=== PATIENT | male | born 1985 | race American Indian/Alaskan Native ===

== ENCOUNTER 2019-06-19 07:52 | Emergency (ER) | payer OTHER ==
--- NOTE | 2019-06-19 09:27 | Emergency Department Report ---
ED General Adult HPI - General Chief complaint: Extremity Injury, Lower Stated complaint: (R) FOOT/BACK PAIN Time Seen by Provider: 06/19/19 08:59 Source: patient Mode of arrival: Ambulatory Limitations: No Limitations - History of Present Illness Initial comments: This is a 33-year-old -[place] male presents to the emergency room with right foot pain and back pain for 3 days. 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 Patient reports pain is worse with weightbearing. He was unable to apply weight Tuesday morning when he woke up. Patient states he soaked his foot in Epsom salts. Minimal improvement of symptoms. He reports back pain for one year intermittently after surgery. He denies recent injury. Onset/Timin -: days(s) Location: back, lower extremity (right foot) Radiation: non-radiation Severity scale (0 -10): 5 Quality: aching Consistency: intermittent Improves with: immobilization Worsens with: movement, other (weight bearing) Associated Symptoms: denies other symptoms Treatments Prior to Arrival: heat therapy - Related Data Previous Rx's Medication Instructions Recorded Last Taken Type Ibuprofen [Motrin 800 MG tab] 800 mg PO Q8HR PRN #20 tablet 06/19/19 Unknown Rx Allergies Allergy/AdvReac Type Severity Reaction Status Date / Time No Known Allergies Allergy Unverified 06/19/19 07:59 ED Review of Systems ROS: Stated complaint: (R) FOOT/BACK PAIN Other details as noted in HPI Constitutional: denies: chills, fever Respiratory: denies: cough, shortness of breath, wheezing Cardiovascular: denies: chest pain, palpitations Gastrointestinal: denies: abdominal pain, nausea, diarrhea Musculoskeletal: back pain, arthralgia (right foot pain). denies: joint swelling Skin: denies: rash, lesions Neurological: denies: headache, weakness, paresthesias Psychiatric: denies: anxiety, depression ED Past Medical Hx - Past Medical History Previous Medical History?: No - Surgical History Past Surgical History?: No Additional Surgical History: chest surgery - Social History Smoking Status: Never Smoker Substance Use Type: Alcohol, Marijuana - Medications Home Medications: Home Medications Medication Instructions Recorded Confirmed Last Taken Type Ibuprofen [Motrin 800 MG tab] 800 mg PO Q8HR PRN #20 tablet 06/19/19 Unknown Rx ED Physical Exam - General Limitations: No Limitations General appearance: alert, in no apparent distress - Respiratory Respiratory exam: Present: normal lung sounds bilaterally. Absent: respiratory distress - Cardiovascular Cardiovascular Exam: Present: regular rate, normal rhythm. Absent: systolic murmur, diastolic murmur, rubs, gallop - GI/Abdominal GI/Abdominal exam: Present: soft, normal bowel sounds - Expanded Lower Extremity Exam Right Upper Leg exam: Present: normal inspection, full ROM Knee exam: Present: normal inspection, full ROM Lower Leg exam: Present: normal inspection, full ROM Ankle exam: Present: normal inspection, full ROM Foot/Toe exam: Present: full ROM (pain with range of motion), tenderness (fifth proximal metatarsal). Absent: swelling, abrasion, laceration, ecchymosis, deformity, crepidus, dislocation, erythema, amputation, puncture wound, foreign body, calcaneal tenderness, tenderness at base of 5th metatarsal, nail avulsion, subungual hematoma Neuro vascular tendon exam: Present: no vascular compromise Gait: Positive: observed and limited by pain - Back Exam Back exam: Present: full ROM, paraspinal tenderness (thoracic right). Absent: muscle spasm, vertebral tenderness, rash noted - Neurological Exam Neurological exam: Present: alert, oriented X3, normal gait - Psychiatric Psychiatric exam: Present: normal affect, normal mood - Skin Skin exam: Present: warm, dry, intact, normal color. Absent: rash ED Course Vital Signs 06/19/19 06/19/19 07:59 09:32 Temperature 98.5 F Pulse Rate 80 74 Respiratory 18 Rate Blood Pressure 160/104 154/91 [Left] O2 Sat by Pulse 100 Oximetry ED Medical Decision Making - Radiology Data Radiology results: report reviewed Right foot impression: No acute osseous or soft tissue abnormality. Mild osteoarthritic changes are identified at the first metatarsophalangeal joint. - Medical Decision Making Patient was examined by me. Patient is nontoxic appearing and stable. Vitals are normal. Obtained x-ray of right foot. The report was reviewed by myself with no acute osseous or soft tissue findings. There is now osteoarthritis of first metatarsophalangeal joint. Negative spinal tenderness on focal exam. Patient denies changes in urinary or bowel pattern. Start naproxen for pain management. Referral to a primary care doctor for follow-up. Patient discharged home in stable condition. Critical care attestation.: If time is entered above; I have spent that time in minutes in the direct care of this critically ill patient, excluding procedure time. ED Disposition Clinical Impression: Foot pain, right Back pain Qualifiers: Back pain location: thoracic back pain Chronicity: chronic Back pain laterality: right Qualified Code(s): M54.6 - Pain in thoracic spine; G89.29 - Other chronic pain Osteoarthritis Qualifiers: Osteoarthritis location: foot Osteoarthritis type: unspecified Laterality: right Qualified Code(s): M19.071 - Primary osteoarthritis, right ankle and foot Disposition: TO HOME OR SELFCARE Is pt being admited?: No Does the pt Need Aspirin: No Condition: Stable Instructions: Lumbar Radiculopathy (ED), Osteoarthritis (ED), Self-Care Measures with a Chronic Disease (ED) Additional Instructions: Rest Use ice or heat on affected area for 20 minutes and off for 2 hours. Take pain medication as needed for pain. Follow up with Primary Care Provider in 2-3 days. Prescriptions: Ibuprofen [Motrin 800 MG tab] 800 mg PO Q8HR PRN #20 tablet PRN Reason: Pain , Severe (7-10) Referrals: SAUMYA CORONADO MD [Primary Care Provider] - 3-5 Days [facility] [Provider Group] - 3-5 Days [facility] [Provider Group] - 3-5 Days Forms: Work/School Release Form(ED) Time of Disposition: 10:42
[2019-06-19 10:53] VITALS: BP 151/90
--- NOTE | 2019-06-20 15:39 | XRay Report ---
Right foot, 3 views INDICATION: Right foot pain for 2 days. COMPARISON: None. IMPRESSION: No acute osseous or soft tissue abnormality. Mild osteoarthritic changes are identifi ed at the first metatarsophalangeal joint. Signer Name: Parker Abraham Jr, MD Signed: 06/19/2019 8:28 AM Workstation Name: [id number]
== END 2019-06-19 10:52 | disposition home or self-care (01) ==
LOC: ED 07:52
DX: M19.071 Primary osteoarthritis, right ankle and foot (principal); M54.6 Pain in thoracic spine; F12.10 Cannabis abuse, uncomplicated; Z98.890 Other specified postprocedural states; Z79.899 Other long term (current) drug therapy